=== PATIENT | female | born 1995 | race Hispanic/Latino ===

== ENCOUNTER 2016-06-01 08:59 | Outpatient (CLI) | payer MEDICAID ==
[2016-06-01] MEDS ORDERED: LACTATED RINGERS 500 ML IV ONE (09:21)
[2016-06-01 09:28] VITALS: BP 112/59
[2016-06-01 09:51] LABS: Bilirubin,Urine NEG (Negative); Blood,Urine NEG (Negative); Ketones,Urine NEG (Negative); Leukocyte Esterase,Urine NEG (Negative); Mucus,Urine FEW /HPF; Nitrite,Urine NEG (Negative); Urobilinogen,Urine < 2.0 mg/dL (<2.0)
== END 2016-06-01 13:10 | disposition home or self-care (01) ==
LOC: TRG 08:59
PROVIDERS: ATTEND Obstetrics & Gynecology Gynecology
DX: O47.02 False labor before 37 completed weeks of gestation, second trimester (principal); Z3A.23 23 weeks gestation of pregnancy
CPT/HCPCS: 81001; 96360; 96361; J7120

== ENCOUNTER 2016-06-03 00:23 | Outpatient (CLI) | payer MEDICAID ==
[2016-06-03] MEDS ORDERED: LACTATED RINGERS 500 ML IV ONE (01:29)
== END 2016-06-03 02:19 | disposition home or self-care (01) ==
LOC: TRG 00:23
PROVIDERS: ATTEND Specialist
DX: O26.892 Other specified pregnancy related conditions, second trimester (principal); O42.92 Full-term premature rupture of membranes, unspecified as to length of time between rupture and onset of labor; R10.9 Unspecified abdominal pain; R25.2 Cramp and spasm; Z3A.23 23 weeks gestation of pregnancy

== ENCOUNTER 2017-07-11 02:06 | Emergency (ER) | payer MEDICAID ==
[2017-07-11 02:15] VITALS: BP 127/73
[2017-07-11 03:12] LABS: Basophils % (Auto) 0.3 % (0.0-1.8); Eosinophils # (Auto) 0.1 K/mm3 (0.0-0.4); Eosinophils % (Auto) 1.1 % (0.0-4.3); Hematocrit 42.9 % (30.3-42.9); Hemoglobin 13.8 gm/dl (10.1-14.3); Lymphocytes # (Auto) 1.1 K/mm3 (1.2-5.4); Mean Corpuscular HGB Conc 32 % (30-34); Mean Corpuscular Hemoglobin 27 pg (28-32); Mean Corpuscular Volume 83 fl (79-97); Monocytes # (Auto) 0.4 K/mm3 (0.0-0.8); Monocytes % (Auto) 3.7 % (0.0-7.3); Platelet Count 324 K/mm3 (140-440); Red Blood Count 5.16 M/mm3 (3.65-5.03); Red Cell Distribution Width 15.9 % (13.2-15.2)
[2017-07-11 03:19] LABS: Alanine Aminotransferase 11 units/L (7-56); Albumin 4.2 g/dL (3.9-5); BUN/Creatinine Ratio 21; Blood Urea Nitrogen 15 mg/dL (7-17); Hemolysis Index 0
== END 2017-07-11 02:45 | disposition left against medical advice (07) ==
LOC: ED 02:06
DX: Z53.21 Procedure and treatment not carried out due to patient leaving prior to being seen by health care provider (principal)
CPT/HCPCS: 36415; 80053; 84703; 85025

== ENCOUNTER 2017-10-18 22:58 | Emergency (ER) | payer MEDICAID | END 2017-10-18 23:00 | disposition left against medical advice (07) | LOC: ED 22:58 | DX: R07.89 Other chest pain (principal); Z53.21 Procedure and treatment not carried out due to patient leaving prior to being seen by health care provider ==